=== PATIENT | female | born 1995 | race American Indian/Alaskan Native ===

== ENCOUNTER 2019-05-18 04:43 | Emergency (ER) | payer SELFPAY ==
[2019-05-18 04:48] VITALS: BP 111/70
[2019-05-18 05:17] LABS: Basophils % (Auto) 0.8 % (0.0-1.8); Eosinophils # (Auto) 0.1 K/mm3 (0.0-0.4); Eosinophils % (Auto) 1.8 % (0.0-4.3); Hematocrit 35.8 % (30.3-42.9); Hemoglobin 11.4 gm/dl (10.1-14.3); Lymphocytes # (Auto) 1.4 K/mm3 (1.2-5.4); Lymphocytes % (Auto) 44.4 % (13.4-35.0); Mean Corpuscular HGB Conc 32 % (30-34); Mean Corpuscular Volume 77 fl (79-97); Monocytes # (Auto) 0.4 K/mm3 (0.0-0.8); Monocytes % (Auto) 12.3 % (0.0-7.3); Platelet Count 205 K/mm3 (140-440); Red Blood Count 4.65 M/mm3 (3.65-5.03); Red Cell Distribution Width 14.6 % (13.2-15.2)
[2019-05-18 05:30] LABS: Bacteria,Urine 4+ /HPF (Negative); Bilirubin,Urine NEG (Negative); Blood,Urine LG (Negative); Color,Urine Yellow (Yellow); Mucus,Urine 3+ /HPF; Protein,Urine <15 mg/dL mg/dL (Negative); Urobilinogen,Urine < 2.0 mg/dL (<2.0)
[2019-05-18 05:31] LABS: RBC,Urine > 182.0 /HPF (0.0-6.0)
--- NOTE | 2019-05-18 08:11 | Emergency Department Report ---
ED Female HPI - General Chief complaint: Vaginal Bleeding Stated complaint: ABD PAIN/BLEEDING Time Seen by Provider: 05/18/19 07:20 Source: patient Mode of arrival: Ambulatory Limitations: No Limitations - History of Present Illness Initial comments: This is a 23-year-old female who presents the ED complaining of vaginal bleeding that began today. Patient states she has been on Mirena for the past 5 years and had her normal cycle 05/11/2019. Patient stated that so when she noticed vaginal bleeding today she was a bit worried. Patient noted some pelvic cramping with the bleeding. 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 She denies fever/chills/nausea vomiting/abdominal pain/chest pain/shortness of breath. MD Complaint: vaginal bleeding - Related Data Home Medications Medication Instructions Recorded Confirmed Last Taken Levothyroxine [Synthroid] 50 mcg PO QAM 08/02/14 08/02/14 08/01/14 10:00 50 Previous Rx's Medication Instructions Recorded Last Taken Type Ferrous Sulfate [Feosol 325 MG tab] 325 mg PO TID #90 tablet 08/02/14 Unknown Rx HYDROcodone/APAP 5-325 [[place] 1 each PO Q6H PRN #20 tablet 08/02/14 Unknown Rx 5-325 mg TAB] Ibuprofen [Motrin 600 MG tab] 600 mg PO Q6H #100 tablet 08/02/14 Unknown Rx Ciprofloxacin HCl [Ciprofloxacin 500 mg PO Q12HR #14 tab 05/18/19 Unknown Rx TAB] Allergies Allergy/AdvReac Type Severity Reaction Status Date / Time No Known Allergies Allergy Verified 07/29/14 17:39 ED Review of Systems ROS: Stated complaint: ABD PAIN/BLEEDING Other details as noted in HPI Comment: All other systems reviewed and negative ED Past Medical Hx - Past Medical History Previous Medical History?: No Hx Hypertension: No Hx Congestive Heart Failure: No Hx Diabetes: No Hx Deep Vein Thrombosis: No Hx Renal Disease: No Hx Sickle Cell Disease: No Hx Seizures: No Hx Asthma: No Hx COPD: No Hx HIV: No - Surgical History Past Surgical History?: No - Social History Smoking Status: Never Smoker Substance Use Type: None - Medications Home Medications: Home Medications Medication Instructions Recorded Confirmed Last Taken Type Ferrous Sulfate [Feosol 325 MG tab] 325 mg PO TID #90 tablet 08/02/14 Unknown Rx HYDROcodone/APAP 5-325 [[place] 1 each PO Q6H PRN #20 tablet 08/02/14 Unknown Rx 5-325 mg TAB] Ibuprofen [Motrin 600 MG tab] 600 mg PO Q6H #100 tablet 08/02/14 Unknown Rx Levothyroxine [Synthroid] 50 mcg PO QAM 08/02/14 08/02/14 08/01/14 10:00 History 50 Ciprofloxacin HCl [Ciprofloxacin 500 mg PO Q12HR #14 tab 05/18/19 Unknown Rx TAB] ED Physical Exam - General Limitations: No Limitations General appearance: alert, in no apparent distress - Head Head exam: Present: atraumatic, normocephalic - Eye Eye exam: Present: normal appearance - ENT ENT exam: Present: mucous membranes moist - Neck Neck exam: Present: normal inspection - Respiratory Respiratory exam: Present: normal lung sounds bilaterally. Absent: respiratory distress - Cardiovascular Cardiovascular Exam: Present: regular rate, normal rhythm. Absent: systolic murmur, diastolic murmur, rubs, gallop - GI/Abdominal GI/Abdominal exam: Present: soft, normal bowel sounds. Absent: distended, tenderness, mass - Extremities Exam Extremities exam: Present: normal inspection - Back Exam Back exam: Present: normal inspection - Neurological Exam Neurological exam: Present: alert, oriented X3 - Psychiatric Psychiatric exam: Present: normal affect, normal mood - Skin Skin exam: Present: warm, dry, intact, normal color. Absent: rash ED Course Vital Signs 05/18/19 04:47 Temperature 98.3 F Pulse Rate 82 Respiratory 16 Rate Blood Pressure 111/70 O2 Sat by Pulse 100 Oximetry ED Medical Decision Making - Lab Data Result diagrams: 05/18/19 04:54 Laboratory Last Values WBC 3.3 K/mm3 (4.5-11.0) L 05/18/19 04:54 RBC 4.65 M/mm3 (3.65-5.03) 05/18/19 04:54 Hgb 11.4 gm/dl (10.1-14.3) 05/18/19 04:54 Hct 35.8 % (30.3-42.9) 05/18/19 04:54 MCV 77 fl (79-97) L 05/18/19 04:54 MCH 25 pg (28-32) L 05/18/19 04:54 MCHC 32 % (30-34) 05/18/19 04:54 RDW 14.6 % (13.2-15.2) 05/18/19 04:54 Plt Count 205 K/mm3 (140-440) 05/18/19 04:54 Lymph % (Auto) 44.4 % (13.4-35.0) H 05/18/19 04:54 [place] % (Auto) 12.3 % (0.0-7.3) H 05/18/19 04:54 Eos % (Auto) 1.8 % (0.0-4.3) 05/18/19 04:54 Baso % (Auto) 0.8 % (0.0-1.8) 05/18/19 04:54 Lymph # 1.4 K/mm3 (1.2-5.4) 05/18/19 04:54 [place] # 0.4 K/mm3 (0.0-0.8) 05/18/19 04:54 Eos # 0.1 K/mm3 (0.0-0.4) 05/18/19 04:54 Baso # 0.0 K/mm3 (0.0-0.1) 05/18/19 04:54 Seg Neutrophils % 40.7 % (40.0-70.0) 05/18/19 04:54 Seg Neutrophils # 1.3 K/mm3 (1.8-7.7) L 05/18/19 04:54 HCG, Qual Negative (Negative) 05/18/19 04:54 Urine Color Yellow (Yellow) 05/18/19 Unknown Urine Turbidity Slightly-cloudy (Clear) 05/18/19 Unknown Urine pH 5.0 (5.0-7.0) 05/18/19 Unknown Ur Specific [place] 1.026 (1.003-1.030) 05/18/19 Unknown Urine Protein <15 mg/dl mg/dL (Negative) 05/18/19 Unknown Urine Glucose (UA) Neg mg/dL (Negative) 05/18/19 Unknown Urine Ketones Neg mg/dL (Negative) 05/18/19 Unknown Urine Blood Lg (Negative) 05/18/19 Unknown Urine Nitrite Pos (Negative) 05/18/19 Unknown Urine Bilirubin Neg (Negative) 05/18/19 Unknown Urine Urobilinogen < 2.0 mg/dL (<2.0) 05/18/19 Unknown Ur Leukocyte Esterase Tr (Negative) 05/18/19 Unknown Urine WBC (Auto) 16.0 /HPF (0.0-6.0) H 05/18/19 Unknown Urine RBC (Auto) > 182.0 /HPF (0.0-6.0) 05/18/19 Unknown U Epithel Cells (Auto) < 1.0 /HPF (0-13.0) 05/18/19 Unknown Urine Bacteria (Auto) 4+ /HPF (Negative) 05/18/19 Unknown Urine Mucus 3+ /HPF 05/18/19 Unknown Blood Type A POSITIVE 05/18/19 04:54 - Medical Decision Making This 23-year-old female presenting for vaginal bleeding secondary to regular menstrual cycle. I discussed all lab findings with the patient. All lab results within normal limits. Urinalysis positive for urinary tract infection. I discussed this with patient and her mother who is in the room. I discussed antibiotic therapy treatment for patient. I discussed with patient follow-up with [facility] is recommended for assessment of other contraceptive method and vaginal bleed. Discussed follow-up in 2 to 3 days. Vital signs are normal patient is in no acute distress. Critical care attestation.: If time is entered above; I have spent that time in minutes in the direct care of this critically ill patient, excluding procedure time. ED Disposition Clinical Impression: UTI (urinary tract infection), Menstrual cramp, Irregular menstrual bleeding Disposition: -01 TO HOME OR SELFCARE Is pt being admited?: No Does the pt Need Aspirin: No Condition: Stable Instructions: Urinary Tract Infection in Women (ED), Menorrhagia (ED) Additional Instructions: Make sure to follow up with the primary care physician as discussed. Take all your medications as you've been prescribed. If you have any worsening symptoms or develop new symptoms please return to ED immediately. Prescriptions: Ciprofloxacin HCl [Ciprofloxacin TAB] 500 mg PO Q12HR #14 tab Referrals: PRIMARY CARE [Primary Care Provider] - 3-5 Days [facility] [Provider Group] - 3-5 Days [facility] [Provider Group] - 3-5 Days Forms: Accompanied Note, Work/School Release Form(ED) Time of Disposition: 08:16
== END 2019-05-18 08:38 | disposition home or self-care (01) ==
LOC: ED 04:43
DX: N39.0 Urinary tract infection, site not specified (principal); N91.5 Oligomenorrhea, unspecified; R25.2 Cramp and spasm; Z79.899 Other long term (current) drug therapy
CPT/HCPCS: 36415; 81001; 84703; 85025; 86900; 86901; 87076; 87086; 87186